=== PATIENT | male | born 1985 | race African-American/Black ===

== ENCOUNTER 2017-09-01 15:10 | Emergency (ER) | payer SELFPAY ==
--- NOTE | 2017-09-01 15:24 | ED Physician Documentation ---
General Adult - HISTORIAN Historian: patient - HPI Stated Complaint: lesions on penis Chief Complaint: Male Urogenital Problems Onset: other (1) Timing: still present Severity: mild Further Comments: yes (He states that he has had some issues with a crusting in past and used an old cream when this started about one week ago. He is a diabetic and sugars are not well controlled.) - ROS CONST: no problems - PAST HX Past History: other (diabetes 2 not controlled ) Other History: none Surgeries/Procedures: none Immunizations: UTD - SOCIAL HX Smoking History: non-smoker Alcohol Use: none Drug Use: none - FAMILY HX Family History: No - REVIEWED ASSESSMENTS Nursing Assessment Reviewed: Yes Vitals Reviewed: Yes General Adult Physical Exam - PHYSICAL EXAM GENERAL APPEARANCE: no distress EENT: eye inspection normal NECK: normal inspection RESPIRATORY: no resp distress, chest non-tender, breath sounds normal CVS: reg rate & rhythm, heart sounds normal, equal pulses ABDOMEN: soft RECTAL: other (several uclerations around tip of penis (uncirc) small amount of yellow discharge with ulcerations ) SKIN: warm/dry, normal color EXTREMITIES: non-tender NEURO: oriented X3, CN's nml as tested, motor nml Discharge Clincal Impression: Penis disorder Referrals: Kirsty Sims MD [Primary Care Provider] - 2 Days Comments: 1. Acyclovir 400 mg take 1 by mouth TID x 10 days 2. Diflucan 150 mg take one today and repeat in 3 days 3. Keep area clean and dry 4. Keep blood sugars under control 5. Practice safe sex 6. Follow up with PCP for further testing 7. Return to ER for any concerns Condition: Stable Disposition: 01 HOME, SELF-CARE Decision to Admit: NO Date of Decison to Admit: 09/01/17 Decision Time: 15:49
[2017-09-01 15:25] VITALS: BP 158/97
== END 2017-09-01 16:05 | disposition home or self-care (01) ==
LOC: ED 15:10
DX: N48.29 Other inflammatory disorders of penis (principal); E11.69 Type 2 diabetes mellitus with other specified complication
CPT/HCPCS: 86694; 87529; 99282